=== PATIENT | male | born 1985 | race Caucasian/White ===

== ENCOUNTER 2018-01-29 12:19 | Emergency (ER) | payer BC ==
[2018-01-29 12:34] VITALS: BP 139/90
[2018-01-29] MEDS ORDERED: Tetan/Diph/Pertus SYR(Tdap)* 0.5 ML SYR(BOOSTRIX) use SYR IM ONE (13:53)
--- NOTE | 2018-01-29 14:13 | UC ---
Laceration HPI - HPI Summary HPI Summary: slipped and fell while fishing about 3 hours ago laceration on right lower leg - History Of Current Complaint Chief Complaint: UCLaceration Stated Complaint: RIGHT LEG LAC Time Seen by Provider: 01/29/18 14:04 Hx Obtained From: Patient Laceration Location: Calf - anterior right lower leg Mechanism Of Injury: Blunt Trauma Onset/Duration: Sudden Onset Pain Intensity: 1 Pain Scale Used: 0-10 Numeric Aggravating Factors: Nothing - Allergies/Home Medications Allergies/Adverse Reactions: Allergies Allergy/AdvReac Type Severity Reaction Status Date / Time aspirin Allergy GI Upset Verified 01/29/18 12:34 Home Medications: Home Medications busPIRone TAB* [Buspar TAB*] 5 mg PO BID 01/29/18 [History Confirmed 01/29/18] PMH/Surg Hx/FS Hx/Imm Hx Previously Healthy: No Psychological History: Anxiety - Surgical History Surgical History: None - Family History Known Family History: Positive: None - Social History Occupation: Employed Full-time Lives: With Family Alcohol Use: Weekly Substance Use Type: None Smoking Status (MU): Former Smoker Review of Systems Constitutional: Negative Skin: Other - laceration right lower leg (actually skin avulsion) Eyes: Negative ENT: Negative Respiratory: Negative Cardiovascular: Negative Gastrointestinal: Negative Genitourinary: Negative Motor: Negative Neurovascular: Negative Musculoskeletal: Negative Neurological: Negative Psychological: Negative Is Patient Immunocompromised?: No All Other Systems Reviewed And Are Negative: Yes Physical Exam Triage Information Reviewed: Yes Appearance: Well-Appearing, No Pain Distress, Well-Nourished Vital Signs: Initial Vital Signs Temp 99.0 F 01/29/18 12:30 Pulse 91 01/29/18 12:30 Resp 18 01/29/18 12:30 BP 139/90 01/29/18 12:30 Pulse Ox 99 01/29/18 12:30 Vital Signs Reviewed: Yes Eye Exam: Normal Eyes: Positive: Conjunctiva Clear ENT Exam: Normal ENT: Positive: Normal ENT inspection, Hearing grossly normal. Negative: Trismus , Muffled voice, Hoarse voice Dental Exam: Normal Neck exam: Normal Neck: Positive: Supple, Nontender, No Lymphadenopathy Respiratory Exam: Normal Respiratory: Positive: Chest non-tender, No respiratory distress, No accessory muscle use Cardiovascular Exam: Normal Cardiovascular: Positive: RRR, Pulses Normal, Brisk Capillary Refill Musculoskeletal Exam: Normal Musculoskeletal: Positive: Strength Intact, ROM Intact, No Edema Neurological Exam: Normal Neurological: Positive: Alert, Muscle Tone Normal Psychological Exam: Normal Skin Exam: Other Skin: Positive: Other - 2cm long 1 cm at max width oval shaped skin avulsion Laceration Repair - Laceration Repair 1 Description: Irregular - oval shaped 1 cm wide 2 cm long---skin avulsion Modified For Repair: No Cleansing Completed Via Routine Prep: Yes Irrigation With Pressure Irrigation Device: Yes Laceration Course/Dx - Course/Dx Course Of Treatment: wound not closable---rico , keflex up date Boostrix, wash bid and follow with pcp prn - Differential Dx - Laceration/Wound Provider Diagnoses: 2 cm skin avulsion right lower leg, update boostrix Discharge - Sign-Out/Discharge Documenting (check all that apply): Patient Departure All imaging exams completed and their final reports reviewed: No Studies - Discharge Plan Condition: Stable Disposition: HOME Prescriptions: Cephalexin CAP* [Keflex CAP*] 500 mg PO TID #21 cap Patient Education Materials: Skin Avulsion (ED), Tetanus (ED) Referrals: [facility] [Outside] - If Needed - Billing Disposition and Condition Condition: STABLE Disposition: Home
== END 2018-01-29 14:25 | disposition home or self-care (01) ==
LOC: UCEAST 12:19
DX: S81.811A Laceration without foreign body, right lower leg, initial encounter (principal); W01.0XXA Fall on same level from slipping, tripping and stumbling without subsequent striking against object, initial encounter; Y93.89 Activity, other specified; Y92.9 Unspecified place or not applicable; Z23 Encounter for immunization; F41.9 Anxiety disorder, unspecified; Z88.6 Allergy status to analgesic agent; Z87.891 Personal history of nicotine dependence
CPT/HCPCS: 90715; 99203; G0463